=== PATIENT | male | born 1945 | race Caucasian/White ===

== ENCOUNTER 2017-07-05 00:19 | Emergency (ER) | payer MEDICARE ==
[2017-07-05] MEDS ORDERED: Fentanyl 100 MCG/2 ML VIAL ONE (01:01)
[2017-07-05] MEDS ORDERED: methylPREDNISolone Sod Succ/PF 125 MG/2 ML VIAL ONE (01:01)
[2017-07-05] MEDS ORDERED: Water For Inject, Bacteriostat 30 ML ONE (01:02)
[2017-07-05 01:19] LABS: Bilirubin Negative (Negative); Blood, Urine Negative (Negative); Clarity Clear (Clear); Glucose, Urine (Dipstick) Negative (Negative); Leukocyte Negative (Negative); Nitrite Negative (Negative); Protein, Urine (Dipstick) Trace mg/dL (Neg-Trace); Urobilinogen 0.2 mg/dL (0.2-1.0)
== END 2017-07-05 02:21 | disposition home or self-care (01) ==
LOC: SCSER 00:19
DX: M54.42 Lumbago with sciatica, left side (principal); E11.9 Type 2 diabetes mellitus without complications; E78.5 Hyperlipidemia, unspecified; Z87.891 Personal history of nicotine dependence; Z79.899 Other long term (current) drug therapy
CPT/HCPCS: 81003; 96372; J2930; J3010

== ENCOUNTER 2017-07-20 18:48 | Inpatient (IN) | payer MEDICARE ==
[2017-07-20] MEDS ORDERED: Acetaminophen 650 MG/20.3 ML UDCUP PO PRN (19:13)
[2017-07-20] MEDS ORDERED: traMADol HCl 50 MG TAB PO PRN (19:14)
[2017-07-20] MEDS ORDERED: CEFAZOLIN/Water 2 GM/20 ML SYRINGE SLOW IVP SCH (19:15)
[2017-07-20] MEDS ORDERED: HYDROcodone/Acetaminophen 5/325 mg Tablet PO PRN (19:17)
[2017-07-20] MEDS ORDERED: tiZANidine HCl 4 MG TAB PO PRN (19:19)
[2017-07-20] MEDS ORDERED: Ondansetron HCl/PF 4 MG/2 ML Vial SLOW IVP PRN (19:21)
[2017-07-20 20:06] LABS: #Eosinphils 0.4 thou/uL (0.0-0.7); #Lymphocytes 2.1 thou/uL (1.20-3.40); #Monocytes 0.8 thou/uL (0.11-0.59); #Neutrophils 10.4 thou/uL (1.40-6.50); %Basophils 0.3 % (0.0-1.0); %Eosinophils 3.2 % (0.0-10.0); %Lymphocytes 14.9 % (21.0-51.0); %Monocytes 5.8 % (0.0-10.0); %Neutrophils 75.8 % (42.0-75.0); Hemoglobin 14.7 g/dL (14.0-18.0); Mean Corpuscular HGB CONC 34.1 g/dL (32.0-36.0); Mean Corpuscular Hemoglobin 31.8 pg (27.0-31.0); Mean Corpuscular Volume 93.4 fl (80.0-94.0); Mean Platelet Volume 6.9 fL (7.4-10.4); Platelet Count 218 thou/uL (130-400); RBC Distribution Width 11.9 % (11.5-14.5); Red Blood Cell (RBC) Count 4.63 mill/uL (4.70-6.10); White Blood Cell (WBC) Count 13.7 thou/uL (4.8-10.8)
[2017-07-20 20:09] LABS: PTT 28.6 SEC (22.9-36.1); Prothrombin Time 12.8 SEC (12.0-14.7)
[2017-07-20 20:27] LABS: ALT (SGPT) 27 U/L (8-55); AST (SGOT) 13 U/L (5-34); Albumin 3.5 g/dL (3.4-4.8); Alkaline Phosphatase 68 U/L (40-150); Anion Gap 9 mmol/L (10-20); BUN (Urea Nitrogen) 32 mg/dL (8.4-25.7); Bilirubin, Total 0.6 mg/dL (0.2-1.2); Calc. Creatinine Clearance 0 mL/min (70-130); Calcium 8.9 mg/dL (7.8-10.44); Carbon Dioxide 31 mmol/L (23-31); Chloride 98 mmol/L (98-107); Estimated GFR-MDRD 62; Globulin 2.4 g/dL (2.4-3.5); Glucose 124 mg/dL (83-110); Potassium 3.9 mmol/L (3.5-5.1); Protein, Total 5.9 g/dL (5.8-8.1); Sodium 134 mmol/L (136-145)
[2017-07-20] MEDS: Sodium Chloride 0.9% 1,000 ML IV SCH (23:21)
[2017-07-21 02:50] VITALS: BMI 26.6
[2017-07-21] MEDS ORDERED: Sodium Chloride 0.9% 10 ML ONE (06:22)
[2017-07-21] MEDS ORDERED: Thrombin 5000 UNITS/5 ML VIAL ONE (06:23)
[2017-07-21] MEDS ORDERED: Bacitracin Zinc Ointment 30 gm TUBE ONE (06:23)
[2017-07-21] MEDS ORDERED: CEFAZOLIN/Water 2 GM/20 ML SYRINGE ONE (07:02)
[2017-07-21] MEDS ORDERED: Fentanyl 100 MCG/2 ML VIAL ONE ×2 (07:12→08:58)
--- NOTE | 2017-07-21 07:57 | PRG ---
DATE OF SERVICE: 07/21/2017 Mr. Ayala was admitted to the hospital for progressive weakness in his left iliopsoas and left quad ricep indicative of a large left L2-L3 disk extrusion with foraminal component compressing the left L 2 nerve root and significant pain and concern of rapidly progressive motor deficit was the reason for direct admission and urgent surgery. We are planning for surgery today. He has been consented.
[2017-07-21] MEDS ORDERED: Prevnar 13-Val Conj/PF 0.5 ML SYRINGE IM ONE (09:00)
[2017-07-21] MEDS: Sodium Chloride 0.9% 1,000 ML IV SCH ×3 (10:10→23:02)
[2017-07-21] MEDS ORDERED: Promethazine HCl 25 MG/ML VIAL IM PRN (10:12)
[2017-07-21] MEDS ORDERED: Promethazine HCl 25 MG/ML VIAL SLOW IVP PRN (10:12)
[2017-07-21] MEDS ORDERED: HYDROmorphone 2 MG/ML VIAL SLOW IVP PRN (10:12)
[2017-07-21] MEDS ORDERED: Ondansetron HCl/PF 4 MG/2 ML Vial IVP PRN (10:12)
[2017-07-21] MEDS ORDERED: HYDROmorphone 0.5 MG/0.5 ML SYRINGE ONE ×4 (10:14→10:45)
[2017-07-21] MEDS ORDERED: Acetaminophen 500 MG TAB PO PRN (13:19)
[2017-07-21] MEDS ORDERED: Ibuprofen 200 MG TAB PO PRN (13:19)
[2017-07-21] MEDS ORDERED: Tamsulosin HCl 0.4 MG CAP PO SCH (13:30)
--- NOTE | 2017-07-21 13:46 | OP ---
OR: 11 WOUND TYPE: Type 1 wound. SURGEON: Papito Paz M.D. SAFETY SPEC: Regino Vazquez PA-C PREPROCEDURE DIAGNOSES: Large left L2-L3 disk extrusion with left L2 and left L3 radiculopathy with low back, left thigh pain, with left hip flexor and quadriceps progressive weakness and gait decline. POSTPROCEDURE DIAGNOSES: Large left L2-L3 disk extrusion with left L2 and left L3 radiculopathy, low back, left thigh pain with hip flexor left hip flexor and quadricep progressive weakness and gait de cunningham. PROCEDURES PERFORMED: 1. Left L2-L3 hemilaminotomy, foraminotomy, and diskectomy. 2. Transfacet far lateral approach for decompression of the exiting left L2 nerve root and removal o f disk material. 3. Use of operative microscope for microdissection. DESCRIPTION OF PROCEDURE: After informed consent was obtained from the patient, the patient brought to OR. Proper patient pause and identification was carried out. He was placed under excellent gener al endotracheal anesthesia and positioned prone on the operating room table. All appropriate points were padded. We identified the L2-L3 segments. This region was sterilely cleansed, prepared and norma ped and a linear jay was made over this region. Following proper patient pause and identification a nd sterile cleansing, preparation and draping, the wound was then opened with a combination of sharp, monopolar and blunt dissection, left L2-L3 segment was exposed from the bottom of L1 to the mid port ion of L3 to allow for satisfactory exposure, the left L2-L3 segment, but also the disk material that had herniated up into the foramen and into the far lateral segment at left L2 foramen. Localization film confirmed our area of interest. The microscope was then brought on the field. We then perform ed a left L2-L3 hemilaminotomy, foraminotomy. We identified disk material. We then did a transfacet far lateral approach, identified more disk material, multiple disk fragments were removed. It was q uite clear that the disk compressed up into the axilla of the nerve root and thinning areas of the du ra in the axilla of the exiting left L2 nerve root and we came upon a small amount of CSF leak; howev er, this ceased on its own. We obtained excellent decompression of the exiting left L2 nerve root th rough the transfacet approach and also worked over the shoulder of the left L3 nerve root and edson ing left L3 nerve root and removed multiple disk fragments as well. At the conclusion of the surgery , we had excellent decompression and the exiting left L2 and traversing left L3 nerve root. Copious irrigation occurred throughout and hemostasis was maximized. The wound was then closed in anatomic l carter following the sprinkling of vancomycin powder. The patient then emerged from anesthesia.
[2017-07-21] MEDS ORDERED: CEFAZOLIN 1 GM in Sodium Chloride 0.9% 100 ML IVPB SCH (14:00)
[2017-07-21] MEDS ORDERED: Lidocaine 1% PF 5 ML VIAL ONE (14:55)
[2017-07-21] MEDS ORDERED: Dexamethasone 20 MG/5 ML VIAL ONE (14:55)
[2017-07-21] MEDS ORDERED: ePHEDrine/0.9% NaCl/PF SYRINGE 50 mg/10 ml ONE (14:55)
[2017-07-21] MEDS ORDERED: Ondansetron HCl/PF 4 MG/2 ML Vial ONE (14:55)
[2017-07-21] MEDS ORDERED: PHENYLEPHRINE-NS 100 MCG/ML 10 ML SYRINGE ONE (14:55)
[2017-07-21] MEDS ORDERED: PROPOFOL 200 MG/20 ML VIAL ONE ×2 (14:55)
[2017-07-21] MEDS ORDERED: Glycopyrrolate 0.2 MG/ML 5 ML SYRINGE ONE (14:55)
[2017-07-21] MEDS: CEFAZOLIN 1 GM, Syringe 2.5 ML in Sterile Water 7.5 ML SLOW IVP SCH ×2 (15:11→22:52)
[2017-07-21] MEDS ORDERED: Docusate 100 MG CAP PO PRN (19:45)
[2017-07-21] MEDS ORDERED: Bisacodyl 5 MG TAB PO PRN (19:45)
[2017-07-21] MEDS: Bisacodyl 5 MG TAB PO PRN (20:11)
[2017-07-21] MEDS ORDERED: Melatonin 3 MG TAB PO PRN (20:48)
[2017-07-21] MEDS ORDERED: Atorvastatin Calcium 10 MG TAB PO SCH (21:00)
[2017-07-22] MEDS ORDERED: diphenhydrAMINE 50 MG/ML VIAL IVP SCH (02:00)
[2017-07-22 05:12] VITALS: TEMP 98.2
[2017-07-22] MEDS: CEFAZOLIN 1 GM, Syringe 2.5 ML in Sterile Water 7.5 ML SLOW IVP SCH (06:31)
[2017-07-22 07:43] VITALS: BP 144/86
[2017-07-22] MEDS ORDERED: Tamsulosin HCl 0.4 MG CAP PO SCH (09:00)
[2017-07-22] MEDS ORDERED: Lactinex Tablet PO SCH (09:00)
[2017-07-22] MEDS: Bisacodyl 5 MG TAB PO PRN (09:13)
[2017-07-22] MEDS: Sodium Chloride 0.9% 1,000 ML IV SCH (10:23)
--- NOTE | 2017-07-22 17:19 | PRG ---
DATE OF SERVICE: 07/22/2017 Regino Vazquez PA-C, dictating for Papito Paz MD POSTOPERATIVE RECHECK: Mr. Ayala is postoperative day #1, having undergone a left L2 hemilaminotom y and diskectomy. The patient is doing well postoperatively. He is tolerating a solid diet, ambulat ing, and his pain is controlled well with oral medications. He did have some issues with urinary ret ention postoperatively and received Flomax and placement of Calvillo catheter; however, this was removed and the patient is voiding well at this time. He has also had improvement in back pain as well as i mprovement in left iliopsoas and left quadricep weakness that he experienced preoperatively. He has good strength in the right lower extremity. At this time, he has met criteria for discharge and we w ill plan accordingly for later today. Postoperative activity restrictions were reviewed with the kostas cook and his and at the time of discharge, the patient is very pleased with his outcome postoper atively with appropriate outpatient followup appointments scheduled.
--- NOTE | 2017-07-26 10:16 | DIS ---
DATE OF ADMISSION: 07/20/2017 DATE OF DISCHARGE: 07/22/2017 DISCHARGE DIAGNOSES: 1. L2-L3 disk extrusion. 2. Low back pain with left leg radiculopathy. 3. Left leg weakness. HOSPITAL COURSE: Mr. Ayala admitted on 07/20/2017 to undergo a left L2-L3 hemilaminotomy, foramino sanam, and diskectomy. The patient's surgery was without complication and he recovered for 2 overnigh t on the surgical floor. At the time of discharge, the patient's left lower extremity weakness was a lready improving. He was very pleased with his outcome postoperatively. Appropriate outpatient foll owup appointments and education was provided and again at the time of discharge, he was pleased with his outcome.
--- NOTE | 2017-09-24 13:55 | EKG ---
Test Reason : PRE-OP Blood Pressure : / mmHG Vent. Rate : 073 BPM Atrial Rate : 073 BPM P-R Int : 166 ms QRS Dur : 102 ms QT Int : 396 ms P-R-T Axes : 068 048 053 degrees QTc Int : 436 ms Normal sinus rhythm Normal ECG When compared with ECG of 22-OCT-2015 17:42, No significant change was found Confirmed by BOLIVAR PEREZ MD ([id number]) on 09/24/2017 1:55:04 PM Referred By: CAMILLA Confirmed By:BOLIVAR PEREZ MD
== END 2017-07-22 11:34 | disposition home or self-care (01) | DRG 520 ==
LOC: SJJU 18:48
PROVIDERS: ADMIT Surgery; ATTEND Surgery
PROC: 01NB0ZZ Release Lumbar Nerve, Open Approach (ICD-10-PCS; principal; 2017-07-21)
PROC: 0SB20ZZ Excision of Lumbar Vertebral Disc, Open Approach (ICD-10-PCS; 2017-07-21)
DX: M51.16 Intervertebral disc disorders with radiculopathy, lumbar region (principal); M48.061 Spinal stenosis, lumbar region without neurogenic claudication; R33.9 Retention of urine, unspecified
CPT/HCPCS: 36415; 76001; 80053; 85025; 85610; 85730; 90471; 90670; 93005; 93010; A4216; G0009; G8978-GP-CK; G8979-GP-CJ; J0690; J1100; J1170; J1200; J2001; J2270; J2405; J2704; J3010; J3370; J3490

== ENCOUNTER 2019-12-24 09:14 | Outpatient (CLI) | payer MEDICARE, OTHER ==
[2019-12-24 14:05] LABS: #Basophils 0.1 thou/uL (0.0-0.2); #Eosinphils 0.1 thou/uL (0.0-0.7); #Lymphocytes 1.3 thou/uL (1.20-3.40); #Monocytes 0.5 thou/uL (0.11-0.59); #Neutrophils 6.9 thou/uL (1.40-6.50); %Basophils 0.7 % (0.0-1.0); %Eosinophils 1.6 % (0.0-10.0); %Lymphocytes 14.8 % (21.0-51.0); %Neutrophils 77.8 % (42.0-75.0); Hemoglobin 14.8 g/dL (14.0-18.0); Mean Corpuscular HGB CONC 34.4 g/dL (32.0-36.0); Mean Corpuscular Hemoglobin 31.5 pg (27.0-31.0); Mean Corpuscular Volume 91.5 fL (78.0-98.0); Mean Platelet Volume 8.1 fL (7.4-10.4); Platelet Count 222 thou/uL (130-400); RBC Distribution Width 12.4 % (11.5-14.5); White Blood Cell (WBC) Count 8.9 thou/uL (4.8-10.8)
[2019-12-24 14:17] LABS: Anion Gap 12 mmol/L (10-20); BUN (Urea Nitrogen) 24 mg/dL (8.4-25.7); Calc. Creatinine Clearance 0 mL/min (70-130); Calcium 8.9 mg/dL (7.8-10.44); Carbon Dioxide 24 mmol/L (23-31); Chloride 106 mmol/L (98-107); Estimated GFR-MDRD 55; Glucose 113 mg/dL (83-110); Potassium 4.6 mmol/L (3.5-5.1); Sodium 137 mmol/L (136-145)
[2019-12-24 14:31] LABS: Prothrombin Time 12.8 sec (12.0-14.7)
[2019-12-24 14:32] LABS: PTT 30.2 sec (22.9-36.1)
[2019-12-25 12:24] LABS: SARS-CoV-2 MS2 Positive; SARS-CoV-2 N Gene Negative; SARS-CoV-2 S Gene Negative; SARS-CoV-2 orf1ab Negative
== END 2019-12-24 09:15 | disposition home or self-care (01) ==
LOC: LABBT 09:14
PROVIDERS: ATTEND Surgery
DX: Z01.818 Encounter for other preprocedural examination (principal); Z11.59 Encounter for screening for other viral diseases; M51.16 Intervertebral disc disorders with radiculopathy, lumbar region
CPT/HCPCS: 80048; 85025; 85610; 85730; 93005; U0003; 87635; 93010

== ENCOUNTER 2019-12-27 08:03 | Day surgery (SDC) | payer MEDICARE ==
[2019-12-24 09:06] VITALS: BMI 27.0
[2019-12-27] MEDS ORDERED: Fentanyl 100 MCG/2 ML VIAL ONE (08:52)
[2019-12-27] MEDS ORDERED: Thrombin 5000 UNITS/5 ML VIAL ONE (08:53)
[2019-12-27] MEDS ORDERED: Glycopyrrolate 0.2 MG/ML 5 ML SYRINGE ONE (09:00)
[2019-12-27] MEDS ORDERED: EPHEDRINE 25 MG/5 ML SYRINGE ONE (09:00)
[2019-12-27] MEDS ORDERED: Lidocaine 1% PF 5 ML VIAL ONE (09:00)
[2019-12-27] MEDS ORDERED: Ondansetron PF 4 MG/2 ML Vial ONE (09:00)
[2019-12-27] MEDS ORDERED: Rocuronium Bromide 10 MG/ML (10ML VIAL) ONE (09:00)
[2019-12-27] MEDS ORDERED: Ketorolac Tromethamine 30 MG/ML VIAL ONE (09:00)
[2019-12-27] MEDS ORDERED: Dexamethasone 20 MG/5 ML VIAL ONE (09:00)
[2019-12-27] MEDS ORDERED: PHENYLEPHRINE-NS 100 MCG/ML 10 ML SYRINGE ONE (09:00)
[2019-12-27] MEDS ORDERED: PROPOFOL 200 MG/20 ML VIAL ONE (09:00)
[2019-12-27] MEDS ORDERED: Phenylephrine 10 MG/ML VIAL ONE (10:23)
[2019-12-27] MEDS ORDERED: HYDROcodone/Acetaminophen 5/325 mg Tablet ONE (12:41)
--- NOTE | 2019-12-28 09:30 | OP ---
DATE OF PROCEDURE: 12/27/2019 LOCATION: OR 12. CLASS A REGIONAL DRIVERS: Svetlana Fairbanks PA-C PREPROCEDURE DIAGNOSIS: Right L3 and right L4 radiculopathy with large paracentral disk extrusion with cephalad migration. POSTPROCEDURE DIAGNOSIS: Right L3 and right L4 radiculopathy with large paracentral disk extrusion with cephalad migration. PROCEDURES: 1. Right L3-L4 hemilaminotomy, foraminotomy, and diskectomy. 2. Use of operative microscope for microdissection. DESCRIPTION OF PROCEDURE: After informed consent was obtained from the patient, the patient was brought to the OR. Proper patient, pause, and identification were carried out. He was placed under excellent general endotracheal anesthesia and positioned prone on the OR table. Prior L2-L3 wound was identified. A small incision drawn out just below this. This region was sterilely cleansed, prepared, and draped. Proper patient, pause, and identification were carried out. The wound was then opened with a combination of sharp, monopolar, and blunt dissection. The right L3-L4 segment was exposed. Localization film confirmed our area of interest and performed a right L3-L4 hemilaminotomy, foraminotomy, diskectomy with the use of the operative microscope for microdissection. We had excellent decompression of the common dural tube. Three large fragments were removed from the axilla of the L3 nerve root, that was also compressing the traversing right L4 nerve root. Copious irrigation occurred throughout as did maximizing hemostasis. There was no spinal fluid leak. Copious irrigation occurred throughout as did maximizing hemostasis. The wound was closed in anatomic layers following sprinkling of vancomycin powder. The patient emerged from anesthesia. Job ID: [id number]
== END 2019-12-27 14:12 | disposition home or self-care (01) ==
LOC: SDC 08:03
PROVIDERS: ATTEND Surgery
PROC: 01NB0ZZ Release Lumbar Nerve, Open Approach (ICD-10-PCS; principal; 2019-12-27)
PROC: 0SB20ZZ Excision of Lumbar Vertebral Disc, Open Approach (ICD-10-PCS; 2019-12-27)
DX: M51.16 Intervertebral disc disorders with radiculopathy, lumbar region (principal); Z79.899 Other long term (current) drug therapy
CPT/HCPCS: 76000; J0690; J1100; J1885; J2370; J2405; J2704; J3010; J3370; J3490